=== PATIENT | female | born 1975 | race Two or more races ===

== ENCOUNTER 2017-12-05 12:20 | Emergency (ER) | payer MEDICAID ==
[~2017-12-05] VITALS: Ht 172.7 cm; Wt 83.9 kg
[~2017-12-05 12:20] MED LIST: ACULAR5 ML RIGHT EYE; ALBUTEROL SULF8.5 GM INH; AZITHROMYCIN250 MG ORAL; NKM
[2017-12-05] MEDS ORDERED: PROMETHAZI6.25 MG/1 ORAL (13:26)
[2017-12-05] MEDS ORDERED: SUDAFED PE PRE1 EACH PO (13:26)
--- NOTE | 2017-12-05 13:27 | Emergency Room Report ---
History of Present Illness General Chief Complaint: Earache Source: Patient Present Illness HPI 42-year-old female patient presents to ER complaining of cough for the past month. Patient also complains of earache since that time. Patient is being seen in ER with her daughters similar complaints. Mother reports that she has been treating with [id number] medications without relief of symptoms, denies taking Tylenol or Advil. Patient states she thinks she needs antibiotics. Patient reports drainage coming out of the right ear, states that she has been using Q-tips and other treatments to relieve her symptoms. denies feelings of dizziness or vertigo acutely. Denies vision loss. Also complains of dry cough, denies hemoptysis. Denies calf pain. Denies history of cardiovascular disease. Denies recent travel. Denies fever, chest pain, shortness of breath. patient reports she has an "occasional" cigarette. Allergies: Coded Allergies: NO KNOWN ALLERGIES (Unverified Allergy, Unknown, 05/04/15) Patient History Past Medical History: see triage record Last Menstrual Period: 12/02/17 Reviewed Nursing Documentation: PMH: Agreed; PSxH: Agreed Nursing Documentation-PMH Past Medical History: No Stated History Review of Systems All Other Systems: negative except mentioned in HPI Physical Exam Vital Signs Date Time Temp Pulse Resp B/P (MAP) Pulse Ox O2 Delivery O2 Flow Rate FiO2 12/05/17 12:31 98.2 84 18 140/95 95 Room Air 98.2 Sp02 EP Interpretation: reviewed, normal General Appearance: well appearing, no apparent distress, alert, GCS 15, non- toxic Head: normocephalic, atraumatic Eyes: bilateral eye normal inspection, bilateral eye PERRL ENT: hearing grossly normal, normal pharynx, no angioedema, normal voice, TMs + canals normal - right ear: mild erythema in canal, no edema; no TM perforation , erythema, or edema, light relfex intact, minimal cerumen bilaterally, uvula midline, moist mucus membranes Neck: full range of motion Respiratory: lungs clear, normal breath sounds, no rhonchi, no respiratory distress, no accessory muscle use, no wheezing, speaking full sentences Cardiovascular #1: regular rate, rhythm, no edema Musculoskeletal: back normal, digits/nails normal, gait/station normal, normal range of motion, non-tender, no calf tenderness Neurologic: alert, oriented x3, responsive, vessel builder III-XII nml as tested, motor strength/tone normal, sensory intact Psychiatric: mood/affect normal Skin: no rash Lymphatic: no adenopathy Medical Decision Making PA Attestation Dr. Lott is my supervising Physician whom patient management has been discussed with. Diagnostic Impression: Primary Impression: Earache, right Additional Impression: Cough ER Course Pt presents to ED c/o earache and cough. DDX considered but are not limited to influenza, viral URI, pneumonia, strep throat, rhinitis, sinusitis, otitis media, otitis externa, cerumen impaction, eustachian tube dysfunction. VITAL SIGNS are WNL, patient is afebrile ER COURSE: PE shows mild erythema of ear canal on right side, TM intact, no erythema, minimal cerumen bilaterally. low suspicion for otitis media or otitis externa. Informed patient to not use Q-tips. Informed patient erythema likely related to continued use of treatments to clean out ear. Informed patient cough can lead to associated symptoms including but not limited to ear fullness. Does not require acute intervention, take NSAIDS for pain and erythema symptoms in ear. Patient reports has Tylenol, does not need Rx. Will provide treatment for relief of symptoms of ear fullness. Informed patient that due to continued symptoms related to ears needs to follow with ENT specialist. PE: Lungs clear to auscultation, no wheezes, rhonci or rales. Informed patient cough can lead to associated symptoms including but not limited to ear fullness. Informed patient possible eustachian tube dysfunction, patient states she thinks she "has that". Needs ENT followup from PCP. Cough likely viral etiology of symptoms, no fever or associated symptoms. Symptomatic treatment, cough medication. Do not smoke. Followup with PCP for further treatment and/or ENT or other referrals as needed. Patient resting comfortably in her chair, talking without difficulty, has not coughed during examination. ER precautions given. DISCHARGE: -Rx given for Sudafed -Rx given for Promethazine syrup for cough sx. At this time pt is stable for d/c to home. Patient is resting comfortably, in no acute distress, nontoxic appearing. Patient to take medications as instructed Will provide with patient care instructions and any necessary prescriptions. Care plan and follow-up instructions provided. Patient instructed to follow-up with primary care provider in 3 - 5 days. Patient questions asked and answered. Patient reports understanding and agreement to treatment plan. ER precautions given. Patient instructed to return to ER immediately for any new or worsening of symptoms including but not limited to increasing SOB, persistent fever, intractable vomiting. - Please note that this Emergency Department Report was dictated using [employer] technology software, occasionally this can lead to erroneous entry secondary to interpretation by the dictation equipment. Last Vital Signs Date Time Temp Pulse Resp B/P (MAP) Pulse Ox O2 Delivery O2 Flow Rate FiO2 12/05/17 12:31 98.2 84 18 140/95 95 Room Air 98.2 Disposition: HOME, SELF-CARE Condition: Stable Scripts Promethazine Hcl (PROMETHAZINE HCL*) 6.25 Mg/5 Ml Syrup 5 ML ORAL Q8H, #120 ML 0 Refills Prov: Anjum Nielsen 12/05/17 D-Methorphan/PE/Acetaminophen (Sudafed PE Pressure+Pain+Cough) 1 Each Tablet 1 EACH PO BID, #24 TAB Prov: Anjum Nielsen 12/05/17 Patient Instructions: Cough, Adult, [id number], Earache Additional Instructions: Followup with primary care provider in 3 -5 days. discuss referral to ENT. do not use Q-tips. Do not smoke. Avoid excessive cleaning of ears. Take medications as directed. Patient questions asked and answered. ER precautions given, patient instructed to return to ER immediately for any new or worsening of symptoms. Anjum Nielsen December 05, 2017 13:27
[2017-12-05 14:00] VITALS: BP 140/95
[2017-12-05 14:01] VITALS: BP 140/95
== END 2017-12-05 14:03 | disposition home or self-care (01) ==
LOC: EMR 13:15
DX: H92.01 Otalgia, right ear (principal); R05 Cough
CPT/HCPCS: 99284